=== PATIENT | female | born 1940 | race Caucasian/White ===

== ENCOUNTER 2016-11-04 04:58 | Inpatient (IN) | payer OTHER ==
[~2016-11-04] VITALS: Ht 152.4 cm; Wt 64.0 kg
[~2016-11-04 04:58] MED LIST: AMLO-218 PO; ASPI-664 PO; GABA300C16 PO; GLIP5TAB13 PO; LOSA100T7 PO; MELO-110 PO; OMEP20CA16 PO; RANI150T5 PO
[2016-11-04 05:06] VITALS: Ht 152.4 cm; Wt 64.0 kg
--- NOTE | 2016-11-04 05:53 | RADRPT ---
PROCEDURE: XR Chest. CLINICAL INDICATION: Syncope. TECHNIQUE: Single frontal chest x-ray. COMPARISON: Chest radiograph 06/12/2014. FINDINGS: The cardiac silhouette is mildly enlarged. There are bilateral low lung volumes with vascular crowding and mild bibasilar atelectasis. No pneum othorax, pleural effusion or consolidation is seen. No acute osseous abnormality is noted. Calcific density is noted in the left upper chest/lower neck which may represent vascular calcificat ion. IMPRESSION: 1. Low lung volumes with compressive changes and mild bibasilar atelectasis. 2. Mild cardiomegaly. 3. Calcific density in the left upper chest/lower neck which may represent vascular/carotid calcifi cation. RPTAT: HFN .Damián Prabhakar MD, Date Time Electronically viewed and signed by .Damián Prabhakar MD, on 11/04/2016 05:53 .N/
[2016-11-04 06:38] LABS: EOSINOPHILS # 0.1 10^3/ul (0.0-0.5); HEMOGLOBIN 13.2 g/dl (12.0-16.0); LYMPHOCYTES # 1.4 10^3/ul (0.8-2.9); LYMPHOCYTES % 11.3 % (15.0-51.0); MEAN CORPUSCULAR HEMOGLOBIN 30.9 pg (29.0-33.0); MEAN CORPUSCULAR HGB CONC 33.8 g/dl (32.0-37.0); MEAN CORPUSCULAR VOLUME 91.6 fl (82.0-101.0); MEAN PLATELET VOLUME 8.8 fl (7.4-10.4); MONOCYTE # 0.8 10^3/ul (0.3-0.9); MONOCYTES % 6.9 % (0.0-11.0); NEUTROPHIL # 9.8 10^3/ul (1.6-7.5); NEUTROPHILS % 80.8 % (39.0-77.0); PLATELET COUNT 217 10^3/UL (140-440); RED BLOOD COUNT 4.26 10^6/ul (4.20-5.40); RED CELL DISTRIBUTION WIDTH 12.8 % (11.5-14.5); UNCORRECTED WBC 12.1 10^3/ul (4.8-10.8); WHITE BLOOD COUNT 12.1 10^3/ul (4.8-10.8)
[2016-11-04 06:41] LABS: CONDITION 1
[2016-11-04] MEDS ORDERED: PIOG30TA2 PO (06:46)
[2016-11-04] MEDS ORDERED: AMLO5TAB4 PO (06:46)
[2016-11-04] MEDS ORDERED: ALEN70TA30 PO (06:46)
[2016-11-04 06:48] LABS: CHLORIDE 99 mmol/L (97-110); SODIUM 142 mmol/L (135-144)
[2016-11-04 06:51] LABS: ANION GAP 18 (8-16); BLOOD UREA NITROGEN 13 mg/dl (7-20); CALCIUM 8.7 mg/dl (8.4-10.2); CARBON DIOXIDE 29 mmol/L (21-31); CREATININE 0.65 mg/dl (0.44-1.00); GLUCOSE 162 mg/dl (70-220)
[2016-11-04 07:19] LABS: TROPONIN-I < 0.012 ng/ml (0.00-0.12)
[2016-11-04] MEDS ORDERED: ONDANSETRON 4 MG INJ IV PRN ×2 (07:30→20:30)
[2016-11-04] MEDS ORDERED: ACETAMINOPHEN 325 MG TAB PO PRN ×2 (07:30→20:30)
--- NOTE | 2016-11-04 07:47 | ERA ---
ER Documentation Chief Complaint Date/Time DATE: 11/04/16 TIME: 07:44 Chief Complaint syncopal episode, NAVEEDA RA 38, from home, hx diabetes HPI Patient is a 76-year-old female with hypertension and diabetes who presents with a syncopal event. The daughter says that she "passed out". The grandson started CPR because the patient was unresponsive and was not breathing. The patient was on the floor at that time. The patient now feels numbness to left side of the face. The daughter says she "feels like she is going to ". The patient was brought in by ambulance. This happened just prior to arrival to the hospital. The patient's primary doctor is Dr. Early. ROS All systems reviewed and are negative except as per history of present illness. Medications Home Meds Reported Medications Alendronate Sodium* (Fosamax*) 70 Mg Tablet, 70 MG PO Q7D, #4 TAB 11/04/16 Pioglitazone Hcl* (Actos*) 30 Mg Tablet, 30 MG PO DAILY, #30 TAB 11/04/16 Amlodipine Besylate* (Norvasc*) 5 Mg Tablet, 5 MG PO DAILY, TAB 11/04/16 Ranitidine Hcl* (Ranitidine Hcl*) 150 Mg Tablet, 150 MG PO Q12, TAB 08/14/14 Omeprazole* (Omeprazole*) 20 Mg Capsule.dr, 20 MG PO DAILY, CAP 08/14/14 Losartan Potassium* (Losartan Potassium*) 100 Mg Tablet, 100 MG PO DAILY, TAB 08/14/14 Meloxicam* (Mobic*) 15 Mg Tablet, 15 MG PO DAILY, TAB 08/14/14 Glipizide* (Glipizide*) 5 Mg Tablet, 5 MG PO AM, TAB 08/14/14 Gabapentin* (Gabapentin*) 300 Mg Capsule, 300 MG PO BID, CAP 08/14/14 Discontinued Reported Medications Aspirin* (Aspirin* EC) 81 Mg Tablet.dr, 81 MG PO DAILY, TAB 08/14/14 Discontinued Scripts Amlodipine Besylate* (Norvasc*) 10 Mg Tab, 10 MG PO DAILY, #30 Prov:GARRY EARLY MD 08/17/14 Allergies Allergies: Coded Allergies: No Known Allergy (Unverified , 11/04/16) PMhx/Soc History of Surgery: Yes (HistErectomy) Anesthesia Reaction: No Hx Neurological Disorder: No Hx Respiratory Disorders: No Hx Cardiac Disorders: No Hx Psychiatric Problems: No Hx Miscellaneous Medical Probl: Yes (HTN HYPERLIPEDEMIA) Hx Alcohol Use: No Hx Substance Use: No Hx Tobacco Use: No Smoking Status: Never smoker FmHx Family History: No diabetes Physical Exam Vitals Vital Signs Date Time Temp Pulse Resp B/P Pulse Ox O2 Delivery O2 Flow Rate FiO2 11/04/16 06:35 98.6 88 18 135/62 95 Room Air 11/04/16 05:06 99.6 89 18 179/83 100 Physical Exam Const: No acute distress Head: Atraumatic Eyes: Normal Conjunctiva ENT: Normal External Ears, Nose and Mouth. Neck: Full range of motion..~ No meningismus. Resp: Clear to auscultation bilaterally Cardio: Regular rate and rhythm, no murmurs Abd: Soft, non tender, non distended. Normal bowel sounds Skin: No petechiae or rashes Back: No midline or flank tenderness Ext: No cyanosis, or edema Neur: Awake but anxious Result Diagram: 11/04/16 0544 11/04/16 0544 Results 24 hrs Laboratory Tests Test 11/04/16 05:44 11/04/16 05:51 Anion Gap 18 Basophils # 0.010^3/ul Basophils % 0.0% Blood Urea Nitrogen 13mg/dl Calcium Level 8.7mg/dl Carbon Dioxide Level 29mmol/L Chloride Level 99mmol/L Creatinine 0.65mg/dl Eosinophils # 0.110^3/ul Eosinophils % 1.0% Glucose Level 162mg/dl Hematocrit 39.0% Hemoglobin 13.2g/dl Lymphocytes # 1.410^3/ul Lymphocytes % 11.3% Mean Corpuscular Hemoglobin 30.9pg Mean Corpuscular Hemoglobin Concent 33.8g/dl Mean Corpuscular Volume 91.6fl Mean Platelet Volume 8.8fl Monocytes # 0.810^3/ul Monocytes % 6.9% Neutrophils # 9.810^3/ul Neutrophils % 80.8% Nucleated Red Blood Cells # 0.010^3/ul Nucleated Red Blood Cells % 0.0/100WBC Platelet Count 41113^3/UL Potassium Level 4.0mmol/L Red Blood Count 4.2610^6/ul Red Cell Distribution Width 12.8% Sodium Level 142mmol/L Troponin I < 0.012ng/ml White Blood Count 12.110^3/ul Bedside Glucose 142mg/dL Current Medications Medications (Trade) Dose Ordered Sig/Mary Anne Route PRN Reason Start Time Stop Time Status Last Admin Dose Admin Ondansetron HCl (Zofran Inj) 4 mg ER BRIDGE PRN IV NAUSEA AND/OR VOMITING 11/04/16 07:30 11/05/16 07:29 Acetaminophen (Tylenol Tab) 650 mg ER BRIDGE PRN PO MILD PAIN/FEVER 11/04/16 07:30 11/05/16 07:29 Lorazepam (Ativan) 0.5 mg ONCE ONCE IV 11/04/16 08:00 11/04/16 08:01 11/04/16 07:42 Procedures/MDM EKG #1 read by me: Rate/Rhythm: Regular rate and rhythm at a rate of 89 Intervals: Normal Impression: No evidence of ischemia or arrhythmia EKG #2 read by me: Rate/Rhythm: Regular rate and rhythm at a rate of 88 Intervals: Normal Impression: No evidence of ischemia or arrhythmia Patient refused CT scan of the brain as she was unable to lie flat. Patient is a 76-year-old female with hypertension and diabetes who presents with a syncopal event. The grandson started CPR but it is unclear as to whether the patient actually had lost pulses or not. In any case she is now awake alert and oriented. She has 2 EKGs which were both normal sinus rhythm without signs of ischemia or arrhythmia. Her laboratory studies are normal including a negative troponin. However I do believe that she requires further workup for syncope. She refused a CT scan of the brain. She did get a bedside swallow evaluation performed. However at this point I doubt stroke. I doubt sepsis. I am unclear as to the reason for her syncope however and this is potentially related to a ventricular arrhythmia and therefore I believe admission for telemetry monitoring is appropriate. I spoke with Dr. Cleary who is covering with the patient's primary doctor Dr. Early. The patient will be admitted to a telemetry bed. Departure Diagnosis: Primary Impression: Syncope Qualified Code: R55 - Syncope, unspecified syncope type Condition: DELMER Carrington MD Nov 04, 2016 07:47
[2016-11-04] MEDS ORDERED: LORAZEPAM 2 MG INJ IV ONE (08:00)
[2016-11-04] MEDS ORDERED: ONDANSETRON 4 MG INJ IV STA (12:01)
[2016-11-04] MEDS ORDERED: morphine 4 MG/ML VIAL IV STA ×2 (12:01→19:34)
--- NOTE | 2016-11-04 13:54 | RADRPT ---
PROCEDURE: XR Lumbar Spine 3 Views. CLINICAL INDICATION: Low back pain TECHNIQUE: Lumbar spine study including AP, lateral and coned L5-S1 views was performed. COMPARISON: No prior studies are available for comparison. FINDINGS: Diffuse osteopenia is identified. Straightening of the normal lordosis is seen. No fractures or de structive bony lesions are observed. Moderate intervertebral disk space narrowing is identified at L5-S1. Mild to moderate intervertebral disk space narrowing is identified from T11-L1. Facet arthros is is seen at L5-S1. Soft tissues surrounding the spine appear normal. IMPRESSION: Osteopenia. Straightening of the normal lordosis. This may be positional in nature. Moderate degenerative disk disease at L5-S1. Mild to moderate degenerative disk disease from T11-L1. Facet arthrosis in the lower lumbar spine. If further characterization is needed CT or MRI could be helpful. If there is high clinical suspicion for traumatic injury, further evaluation with CT should be consi dered. RPTAT: AA .Keenan Schreiber MD, Date Time Electronically viewed and signed by .Keenan Schreiber MD, on 11/04/2016 13:53 .P/
[2016-11-04] MEDS ORDERED: NACL 0.9% 3 ML SYG IV SCH (20:30)
--- NOTE | 2016-11-04 20:59 | RADRPT ---
PROCEDURE: US carotid arteries. CLINICAL INDICATION: Dizziness. Syncope. TECHNIQUE: Multiple sonographic images of the carotid arteries and vertebral arteries were obtaine d utilizing duncan scale, duplex, and color-flow imaging. The images were reviewed on a PACS workstati on. COMPARISON: No prior studies are available for comparison. FINDINGS: Evaluation of the right carotid bifurcation region reveals no atherosclerotic disease. Evaluation of the left carotid bifurcation region reveals no atherosclerotic disease. There is antegrade flow within the vertebral arteries bilaterally. RIGHT CAROTID MEASUREMENTS: Common Carotid [id number] (cm/sec) Internal Carotid Artery 89 (cm/sec) External Carotid Artery 122 (cm/sec) Vertebral Artery 54 (cm/sec) Internal Carotid/Common Carotid0.7 LEFT CAROTID MEASUREMENTS: Common Carotid [id number] (cm/sec) Internal Carotid Artery 118 (cm/sec) External Carotid Artery 111 (cm/sec) Vertebral Artery 72 (cm/sec) Internal Carotid/Common Carotid1.0 Validated velocity measurements with angiographic measurements. Velocity criteria are extrapolated f rom diameter data as defined by the Society of Radiologists in Ultrasound Consensus Conference. Radi ology 2003; 229;340-346. IMPRESSION: 1. Normal carotid arteries. 2. Normal antegrade flow in the vertebral arteries bilaterally. RPTAT: QQ SRU Consensus Conference Criteria for the Diagnosis of Carotid Artery Stenosis* Degree of Stenosis, % ICA PSV, cm/sec Plaque Estimate, % ICA/CCA PSV Ratio Normal <125 None <2.0 <50 <125 <50 <2.0 50 69 125-230 >50 2.0-4.0 >70 but less than near occlusion >230 >50 <4.0 Near occlusion High, low, or undetectable Visible Variable Total occlusion Undetectable Visible, no detectable lumen Not applicable *Cartoid artery stenosis: duncan-scale and Doppler US diagnosis. Society of Radiologists in Ultrasound Consensus Conference. Radiology 2003; 229: 340-346 .Law Mills MD, MD Date Time Electronically viewed and signed by .Law Mills MD, on 11/04/2016 20:58 .R/
[2016-11-04] MEDS: FAMOTIDINE 20 MG INJ IV SCH (21:09)
[2016-11-04 22:19] VITALS: TEMP 98.8
[2016-11-04 22:50] VITALS: BP 146/65; PULSE 74; RESP 19
[2016-11-04 23:35] VITALS: BP 146/65; RESP 19
[2016-11-05] VITALS (12 sets, daily range): BP systolic 134–155; BP diastolic 58–70; PULSE 72–83; RESP 18
[2016-11-05 07:39] LABS: BASOPHILS % 0.4 % (0.0-2.0); EOSINOPHILS % 0.5 % (0.0-7.0); HEMATOCRIT 34.2 % (37.0-47.0); HEMOGLOBIN 11.5 g/dl (12.0-16.0); LYMPHOCYTES % 13.3 % (15.0-51.0); MEAN CORPUSCULAR HGB CONC 33.7 g/dl (32.0-37.0); MEAN CORPUSCULAR VOLUME 91.9 fl (82.0-101.0); MEAN PLATELET VOLUME 8.6 fl (7.4-10.4); MONOCYTE # 0.9 10^3/ul (0.3-0.9); MONOCYTES % 11.7 % (0.0-11.0); NEUTROPHIL # 5.8 10^3/ul (1.6-7.5); NEUTROPHILS % 74.1 % (39.0-77.0); PLATELET COUNT 176 10^3/UL (140-440); RED BLOOD COUNT 3.72 10^6/ul (4.20-5.40); RED CELL DISTRIBUTION WIDTH 12.6 % (11.5-14.5); UNCORRECTED WBC 7.8 10^3/ul (4.8-10.8); WHITE BLOOD COUNT 7.8 10^3/ul (4.8-10.8)
[2016-11-05 07:41] LABS: CONDITION 1
[2016-11-05 07:49] LABS: ALBUMIN 3.6 g/dl (3.3-4.9)
[2016-11-05 07:51] LABS: CREATININE 0.52 mg/dl (0.44-1.00)
[2016-11-05 07:52] LABS: ALBUMIN/GLOBULIN RATIO 1.16; BILIRUBIN,INDIRECT 0.5 mg/dl (0-1.1); BILIRUBIN,TOTAL 0.5 mg/dl (0.2-1.3); CALCIUM 8.1 mg/dl (8.4-10.2); TOTAL PROTEIN 6.7 g/dl (6.1-8.1)
[2016-11-05] MEDS ORDERED: HYPOGLYCEMIA PROTOCOL when Glucose is <70 mg/dL or symptomatic <90 mg/dL. XX ONE ×2 (09:00)
[2016-11-05] MEDS ORDERED: GLUCAGON 1 MG INJ IM PRN (09:30)
[2016-11-05] MEDS ORDERED: DEXTROSE 50% 50 ML SYRINGE IV PRN ×2 (09:30)
[2016-11-05] MEDS ORDERED: GLUCOSE GEL 15 GRAM TUBE PO PRN ×2 (09:30)
[2016-11-05] MEDS ORDERED: GLUCOSE GEL 15 GRAM TUBE BUCCAL PRN (09:30)
[2016-11-05] MEDS: FAMOTIDINE 20 MG INJ IV SCH (09:34)
[2016-11-05] MEDS: ENOXAPARIN 30 MG/0.3 ML SYG SC SCH (09:46)
[2016-11-05] MEDS: INSULIN ASPART [NOVOLOG] 3 ML PEN SC SCH ×3 (11:47→21:23)
--- NOTE | 2016-11-05 13:41 | HP ---
Date/Time of Note Date/Time of Note DATE: 11/05/16 TIME: 13:39 Assessment/Plan VTE Prophylaxis VTE Prophylaxis Intervention: LMWH Lines/Catheters IV [facility]ter [facility]from [facility] Saline Lock Urinary Cath still in place: No Reason Cath still needed: skin wounds contaminated by urine Assessment/Plan Chief Complaint/Hosp Course 1) syncope - monitor on telemetry - check 2D echo 2) diabetes - monitor blood sugar Problems: HPI/ROS Admit Date/Time Admit Date/Time Nov 04, 2016 at 07:24 Hx of Present Illness Patient with hypertension, hypercholesterolemia and diabetes mellitus comes in after having a sycopal episode. She has had this in the past, was hospitalized for the same in 2013. Patient has residual pain from where she fell but is otherwise back to normal. PMH/Family/Social Past Medical History Medical History: diabetes, high cholesterol, hypertension Social History Smoking Status: Never smoker Exam/Review of Systems Vital Signs Vitals Vital Signs Date Time Temp Pulse Resp B/P Pulse Ox O2 Delivery O2 Flow Rate FiO2 11/05/16 12:26 83 11/05/16 11:34 98.7 18 146/70 97 11/05/16 04:00 Nasal Cannula 2.0 Intake and Output 11/04/16 11/04/16 11/05/16 15:00 23:00 07:00 Intake Total 200 ml Balance 200 ml Exam Constitutional: alert, well developed Neck: supple Respiratory: clear to auscultation Cardiovascular: regular rate and rhythm Gastrointestinal: non-tender, soft Labs Result Diagram: 11/05/16 0536 11/05/16 0536 Medications Medications Current Medications Ondansetron HCl (Zofran Inj) 4 mg Q6H PRN IV NAUSEA AND/OR VOMITING; Start at 20:30 Acetaminophen (Tylenol Tab) 650 mg Q6H PRN PO PAIN LEVEL 1-3 OR FEVER Last administered on 11/05/16at 05:04; Admin Dose 650 MG; Start 11/04/16 at 20:30 Morphine Sulfate (morphine) 2 mg Q4H PRN IV PAIN LEVEL 7-10; Start 11/04/16 at 20:30 Famotidine (Pepcid Iv) 20 mg DAILY IV Last administered on 11/05/16at 09:34; Admin Dose 20 MG; Start 11/04/16 at 21:00 Enoxaparin Sodium (Lovenox) 30 mg DAILY SC Last administered on 11/05/16at 09: 46; Admin Dose 30 MG; Start 11/05/16 at 09:00 Diagnostic Test (Pha) (Accucheck) 1 ea 02 XX ; Start 11/06/16 at 02:00 Miscellaneous Information 1 ea NOTE XX ; Start 11/05/16 at 09:30 Glucose (Glutose) 15 gm Q15M PRN PO DECREASED GLUCOSE; Start 11/05/16 at 09:30 Glucose (Glutose) 22.5 gm Q15M PRN PO DECREASED GLUCOSE; Start 11/05/16 at 09: 30 Dextrose (D50w Syringe) 25 ml Q15M PRN IV DECREASED GLUCOSE; Start 11/05/16 at 09:30 Dextrose (D50w Syringe) 50 ml Q15M PRN IV DECREASED GLUCOSE; Start 11/05/16 at 09:30 Glucagon (Glucagen) 1 mg Q15M PRN IM DECREASED GLUCOSE; Start 11/05/16 at 09: 30 Glucose (Glutose) 15 gm Q15M PRN BUCCAL DECREASED GLUCOSE; Start 11/05/16 at 09:30 DEBRA DUNNE Nov 05, 2016 13:41
[2016-11-05] MEDS: ACETAMINOPHEN 325 MG TAB PO PRN (14:17)
--- NOTE | 2016-11-05 14:20 | RADRPT ---
Echocardiogram Report Patient Name: NISSA MONTEMAYOR Gender: Female Date: 1940 Study Date: 05-Nov-2016 Cook Ship: [employer] [facility] Location: [address] Ref. Physician: DEBRA DUNNE Quality: Technically Difficult Study Procedures: Transthoracic echocardiogram with complete 2D, M-Mode, and doppler examination. Indications: Syncope. 2D/M Mode Doppler Measurement Value Normal Ranges Measurement Value Normal Ranges LVIDd 2D 3.7 3.5 - 5.6 cm AV Peak Rico 1.6 m/sec LVIDs 2D 2.3 2.1 - 4.1 cm AV Peak PG 10.7 mmHg LVPWd 2D 0.8 0.6 - 1.1 cm AI Peak PG 59.5 mmHg IVSd 2D 0.8 0.6 - 1.1 cm AI Peak Rico 3.9 m/sec AoR Diam 2D 2.6 2.0 - 3.7 cm AI PHT 394.0 msec EDV 2D 57.2 cm3 LVOT Peak Rico 1.0 m/sec ESV 2D 11.8 cm3 LVOT Peak PG 4.0 mmHg LA Dimen 2D 3.0 2.3 - 4.0 cm TR Peak Rico 2.9 m/sec TR Peak PG 33.3 mmHg RVSP 36.0 mmHg Findings Left Ventricle: Normal left ventricular systolic function. Normal left ventricular cavity size. Normal left ventricular wall thickness. Ejection fraction is visually estimated at 65 %. Tissue Doppler/Mitral Doppler indices are consistent with impaired relaxation (Stage I diastolic dysfunction). Right Ventricle: Normal right ventricular size. Normal right ventricular systolic function. Left Atrium: The left atrium is normal in size. Right Atrium: The right atrium is normal in size. Mitral Valve: Mitral valve leaflets appear mildly thickened. Mild mitral annular calcification. Mild mitral valve regurgitation. Aortic Valve: No hemodynamically significant aortic stenosis by doppler. Aortic cusps appear mildly calcified. Mild aortic valve regurgitation. Tricuspid Valve: Normal appearance of the tricuspid valve. Estimated peak PA systolic pressure 36 mmHg. There is mild tricuspid regurgitation. Pulmonic Valve: Pulmonic valve not well visualized. Pericardium: Normal pericardium with no significant pericardial effusion. Aorta: Normal aortic root. IVC: Normal size and normal respiratory collapse consistent with normal right atrial pressure. Pulmonary Artery: Normal pulmonary artery size. Conclusions 1.Normal left ventricular systolic function. Normal left ventricular cavity size. Normal left ventricular wall thickness. Ejection fraction is visually estimated at 65 %. Tissue Doppler/Mitral Doppler indices are consistent with impaired relaxation (Stage I diastolic dysfunction). 2.Normal right ventricular size. Normal right ventricular systolic function. 3.The left atrium is normal in size. 4.The right atrium is normal in size. 5.Mild mitral valve regurgitation. 6.No hemodynamically significant aortic stenosis by doppler. Mild aortic valve regurgitation. 7.Estimated peak PA systolic pressure 36 mmHg. There is mild tricuspid regurgitation. 8.Normal pericardium with no significant pericardial effusion. Electronically Signed By: Andrae Ferrera 05-Nov-2016 14:20:13 -0800 Patient Name: NISSA MONTEMAYOR Study Date: 05-Nov-2016 [id number]
[2016-11-05] MEDS: morphine 2 MG INJ IV PRN ×2 (16:23→21:16)
[2016-11-05] MEDS: AMLODIPINE 5 MG TAB PO SCH (21:27)
[2016-11-06] VITALS (12 sets, daily range): BP systolic 137–160; BP diastolic 58–72; PULSE 75–90; RESP 16–20
[2016-11-06] MEDS: ALBUTEROL 0.5% (NEB) 2.5 MG/0.5 ML AMP HHN PRN ×3 (00:24→13:33)
[2016-11-06] MEDS: morphine 2 MG INJ IV PRN (01:34)
[2016-11-06] MEDS: ACCUCHECK XX SCH (02:33)
[2016-11-06] MEDS: FAMOTIDINE 20 MG INJ IV SCH (09:00)
[2016-11-06] MEDS: LOSARTAN 50 MG TAB PO SCH (09:00)
[2016-11-06] MEDS: MELOXICAM 15 MG TAB PO SCH (09:00)
[2016-11-06] MEDS: INSULIN ASPART [NOVOLOG] 3 ML PEN SC SCH ×4 (09:02→21:00)
[2016-11-06] MEDS: ENOXAPARIN 30 MG/0.3 ML SYG SC SCH (09:04)
--- NOTE | 2016-11-06 14:32 | DS ---
Date/Time of Note Date/Time of Note DATE: 11/06/16 TIME: 14:31 Discharge Summary Admission/Discharge Info Admit Date/Time Nov 04, 2016 at 07:24 Discharge Date/Time 11/06/16 Final Diagnosis 1) syncope Hx of Present Illness Patient with hypertension, hypercholesterolemia and diabetes mellitus comes in after having a sycopal episode. She has had this in the past, was hospitalized for the same in 2013. Patient has residual pain from where she fell but is otherwise back to normal. Hospital Course Patient comes in with syncope. She was monitored on telemetry, had carotid studies done which was negative. Patient did have chest pain but no evidence of acute coronary syndrome. Patient was deemed to be stable and so was sent home. 1) syncope - monitor on telemetry - check 2D echo 2) diabetes - monitor blood sugar Home Meds Reported Medications Alendronate Sodium* (Fosamax*) 70 Mg Tablet, 70 MG PO Q7D, #4 TAB 11/04/16 Pioglitazone Hcl* (Actos*) 30 Mg Tablet, 30 MG PO DAILY, #30 TAB 11/04/16 Amlodipine Besylate* (Norvasc*) 5 Mg Tablet, 5 MG PO DAILY, TAB 11/04/16 Ranitidine Hcl* (Ranitidine Hcl*) 150 Mg Tablet, 150 MG PO Q12, TAB 08/14/14 Omeprazole* (Omeprazole*) 20 Mg Capsule.dr, 20 MG PO DAILY, CAP 08/14/14 Losartan Potassium* (Losartan Potassium*) 100 Mg Tablet, 100 MG PO DAILY, TAB 08/14/14 Meloxicam* (Mobic*) 15 Mg Tablet, 15 MG PO DAILY, TAB 08/14/14 Glipizide* (Glipizide*) 5 Mg Tablet, 5 MG PO AM, TAB 08/14/14 Gabapentin* (Gabapentin*) 300 Mg Capsule, 300 MG PO BID, CAP 08/14/14 Discontinued Reported Medications Aspirin* (Aspirin* EC) 81 Mg Tablet.dr, 81 MG PO DAILY, TAB 08/14/14 Discontinued Scripts Amlodipine Besylate* (Norvasc*) 10 Mg Tab, 10 MG PO DAILY, #30 Prov:GARRY FULLER MD 08/17/14 Pending Labs Laboratory Tests Test 11/05/16 16:40 11/05/16 21:14 11/06/16 02:26 11/06/16 05:55 Bedside Glucose 124mg/dL (70-220) 256mg/dL (70-220) 139mg/dL (70-220) Troponin I < 0.012ng/ml (0.00-0.12) Test 11/06/16 08:34 11/06/16 11:54 11/06/16 13:10 Bedside Glucose 176mg/dL (70-220) 184mg/dL (70-220) Troponin I < 0.012ng/ml (0.00-0.12) DEBRA DUNNE Nov 06, 2016 14:32
[2016-11-06] MEDS: ALBUTEROL 0.5% (NEB) 2.5 MG/0.5 ML AMP HHN SCH (20:24)
[2016-11-06] MEDS: AMLODIPINE 5 MG TAB PO SCH (21:44)
[2016-11-07] VITALS (12 sets, daily range): BP systolic 132–163; BP diastolic 63–80; PULSE 73–81; RESP 18–20
[2016-11-07] MEDS: ALBUTEROL 0.5% (NEB) 2.5 MG/0.5 ML AMP HHN SCH ×7 (00:11→20:29)
[2016-11-07] MEDS: GUAIFENESIN 20 MG/ML 5ML CUP PO PRN ×4 (00:23→18:43)
[2016-11-07] MEDS: ACCUCHECK XX SCH (02:00)
[2016-11-07] MEDS: INSULIN ASPART [NOVOLOG] 3 ML PEN SC SCH ×4 (07:49→21:00)
[2016-11-07] MEDS: LOSARTAN 50 MG TAB PO SCH (08:30)
[2016-11-07] MEDS: MELOXICAM 15 MG TAB PO SCH (08:31)
[2016-11-07] MEDS: ENOXAPARIN 30 MG/0.3 ML SYG SC SCH (08:31)
[2016-11-07] MEDS: FAMOTIDINE 20 MG INJ IV SCH (08:31)
--- NOTE | 2016-11-07 09:57 | PN ---
Date/Time of Note Date/Time of Note DATE: 11/07/16 TIME: 09:55 Assessment/Plan VTE Prophylaxis VTE Prophylaxis Intervention: LMWH Lines/Catheters [facility] Saline [facility] Urinary Cath still in place: No Assessment/Plan Chief Complaint/Hosp Course Patient comes in with syncope. She was monitored on telemetry, had carotid studies done which was negative. Patient did have chest pain but no evidence of acute coronary syndrome. Patient was deemed to be stable and so was sent home. 1) syncope - is stable 2) diabetes - monitor blood sugar 3) shortness of breath - unclear etiology - will try to wean need for oxygen Problems: Subjective 24 Hr Interval Summary Free Text/Dictation Attempted to discharge the patient yesterday but patient became short of breath with hypoxia with activity. Patient is doing better today but still on oxygen. Exam/Review of Systems Vital Signs Vitals Vital Signs Date Time Temp Pulse Resp B/P Pulse Ox O2 Delivery O2 Flow Rate FiO2 11/07/16 09:11 97 4.0 11/07/16 09:11 87 20 Nasal Cannula 11/07/16 08:06 98.1 163/75 Intake and Output 11/06/16 11/06/16 11/07/16 15:00 23:00 07:00 Intake Total 900 ml 650 ml Output Total 800 ml 750 ml Balance 100 ml -100 ml Exam Constitutional: alert, well developed Head: atraumatic, normocephalic Neck: supple Respiratory: diminished breath sounds Cardiovascular: regular rate and rhythm Gastrointestinal: non-tender, soft Extremities: normal pulses Results Result Diagram: 11/05/16 0536 11/05/16 0536 Results 24 hrs Laboratory Tests Test 11/06/16 11:54 11/06/16 13:10 11/06/16 17:29 11/06/16 21:32 Bedside Glucose 184 123 137 Troponin I < 0.012 Test 11/07/16 07:48 Bedside Glucose 137 Medications Medications Current Medications Ondansetron HCl (Zofran Inj) 4 mg Q6H PRN IV NAUSEA AND/OR VOMITING; Start at 20:30 Morphine Sulfate (morphine) 2 mg Q4H PRN IV PAIN LEVEL 7-10 Last administered on 11/06/16at 01:34; Admin Dose 2 MG; Start 11/04/16 at 20:30 Famotidine (Pepcid Iv) 20 mg DAILY IV Last administered on 11/07/16at 08:31; Admin Dose 20 MG; Start 11/04/16 at 21:00 Enoxaparin Sodium (Lovenox) 30 mg DAILY SC Last administered on 11/07/16at 08: 31; Admin Dose 30 MG; Start 11/05/16 at 09:00 Diagnostic Test (Pha) (Accucheck) 1 ea 02 XX Last administered on 11/06/16at 02 :33; Admin Dose 1 EA; Start 11/06/16 at 02:00 Miscellaneous Information 1 ea NOTE XX ; Start 11/05/16 at 09:30 Glucose (Glutose) 15 gm Q15M PRN PO DECREASED GLUCOSE; Start 11/05/16 at 09:30 Glucose (Glutose) 22.5 gm Q15M PRN PO DECREASED GLUCOSE; Start 11/05/16 at 09: 30 Dextrose (D50w Syringe) 25 ml Q15M PRN IV DECREASED GLUCOSE; Start 11/05/16 at 09:30 Dextrose (D50w Syringe) 50 ml Q15M PRN IV DECREASED GLUCOSE; Start 11/05/16 at 09:30 Glucagon (Glucagen) 1 mg Q15M PRN IM DECREASED GLUCOSE; Start 11/05/16 at 09: 30 Glucose (Glutose) 15 gm Q15M PRN BUCCAL DECREASED GLUCOSE; Start 11/05/16 at 09:30 Acetaminophen (Tylenol Tab) 650 mg Q4H PRN PO PAIN AND OR ELEVATED TEMP Last administered on 11/05/16at 14:17; Admin Dose 650 MG; Start 11/05/16 at 14:30 Amlodipine Besylate (Norvasc) 5 mg QHS PO Last administered on 11/06/16at 21:44 ; Admin Dose 5 MG; Start 11/05/16 at 21:30 Losartan Potassium (Cozaar) 100 mg DAILY PO Last administered on 11/07/16at 08: 30; Admin Dose 100 MG; Start 11/06/16 at 09:00 Meloxicam (Mobic) 15 mg DAILY PO Last administered on 11/07/16at 08:31; Admin Dose 15 MG; Start 11/06/16 at 09:00 Guaifenesin (Robitussin Liquid Cup) 100 mg Q6H PRN PO COUGH Last administered on 11/07/16at 05:49; Admin Dose 100 MG; Start 11/07/16 at 00:15 DEBRA DUNNE Nov 07, 2016 09:57
[2016-11-07] MEDS ORDERED: MAGNESIUM CITRATE 300 ML BTL PO ONE (20:30)
[2016-11-07] MEDS: AMLODIPINE 5 MG TAB PO SCH (21:15)
[2016-11-07] MEDS: ZOLPIDEM 5 MG TAB PO PRN (21:15)
[2016-11-08] VITALS (11 sets, daily range): BP systolic 123–160; BP diastolic 59–77; PULSE 73–87; RESP 16–20
[2016-11-08] MEDS: ALBUTEROL 0.5% (NEB) 2.5 MG/0.5 ML AMP HHN SCH ×6 (01:14→20:23)
[2016-11-08] MEDS: ACCUCHECK XX SCH (02:00)
[2016-11-08] MEDS: GUAIFENESIN 20 MG/ML 5ML CUP PO PRN ×3 (02:06→19:33)
[2016-11-08] MEDS: INSULIN ASPART [NOVOLOG] 3 ML PEN SC SCH ×4 (07:45→21:00)
[2016-11-08] MEDS: LOSARTAN 50 MG TAB PO SCH (08:22)
[2016-11-08] MEDS: MELOXICAM 15 MG TAB PO SCH (08:22)
[2016-11-08] MEDS: ENOXAPARIN 30 MG/0.3 ML SYG SC SCH (08:26)
[2016-11-08] MEDS: FAMOTIDINE 20 MG INJ IV SCH (08:27)
--- NOTE | 2016-11-08 12:21 | PN ---
Date/Time of Note Date/Time of Note DATE: 11/08/16 TIME: 12:18 Assessment/Plan VTE Prophylaxis VTE Prophylaxis Intervention: LMWH Lines/Catheters [facility] Saline Lock Assessment/Plan Chief Complaint/Hosp Course Patient comes in with syncope. She was monitored on telemetry, had carotid studies done which was negative. Patient did have chest pain but no evidence of acute coronary syndrome. Patient was deemed to be stable and so was sent home. 1) syncope - is stable 2) diabetes - monitor blood sugar 3) hypoxia, requiring 4L oxygen - consider pulmonary consult 4) right rib pain - check xray to rule out fracture Problems: Subjective 24 Hr Interval Summary Free Text/Dictation Patient complain of pain in right rib and is still very hypoxic. Exam/Review of Systems Vital Signs Vitals Vital Signs Date Time Temp Pulse Resp B/P Pulse Ox O2 Delivery O2 Flow Rate FiO2 11/08/16 11:25 98.2 78 20 140/61 96 11/08/16 09:56 Nasal Cannula 4.0 Intake and Output 11/07/16 11/07/16 11/08/16 15:00 23:00 07:00 Intake Total 640 ml 550 ml Balance 640 ml 550 ml Exam Constitutional: well developed Head: atraumatic, normocephalic Respiratory: diminished breath sounds Cardiovascular: regular rate and rhythm Gastrointestinal: non-tender, soft Extremities: normal pulses Results Result Diagram: 11/05/16 0536 11/05/16 0536 Results 24 hrs Laboratory Tests Test 11/07/16 12:23 11/07/16 17:14 11/07/16 21:12 11/08/16 07:30 Bedside Glucose 132 134 162 144 Test 11/08/16 11:28 Bedside Glucose 197 Medications Medications Current Medications Ondansetron HCl (Zofran Inj) 4 mg Q6H PRN IV NAUSEA AND/OR VOMITING; Start at 20:30 Morphine Sulfate (morphine) 2 mg Q4H PRN IV PAIN LEVEL 7-10 Last administered on 11/06/16at 01:34; Admin Dose 2 MG; Start 11/04/16 at 20:30 Famotidine (Pepcid Iv) 20 mg DAILY IV Last administered on 11/08/16t 08:27; Admin Dose 20 MG; Start 11/04/16 at 21:00 Enoxaparin Sodium (Lovenox) 30 mg DAILY SC Last administered on 11/08/16 08:26 ; Admin Dose 30 MG; Start 11/05/16 at 09:00 Diagnostic Test (Pha) (Accucheck) 1 ea 02 XX Last administered on 11/06/16at 02 :33; Admin Dose 1 EA; Start 11/06/16 at 02:00 Miscellaneous Information 1 ea NOTE XX ; Start 11/05/16 at 09:30 Glucose (Glutose) 15 gm Q15M PRN PO DECREASED GLUCOSE; Start 11/05/16 at 09:30 Glucose (Glutose) 22.5 gm Q15M PRN PO DECREASED GLUCOSE; Start 11/05/16 at 09: 30 Dextrose (D50w Syringe) 25 ml Q15M PRN IV DECREASED GLUCOSE; Start 11/05/16 at 09:30 Dextrose (D50w Syringe) 50 ml Q15M PRN IV DECREASED GLUCOSE; Start 11/05/16 at 09:30 Glucagon (Glucagen) 1 mg Q15M PRN IM DECREASED GLUCOSE; Start 11/05/16 at 09: 30 Glucose (Glutose) 15 gm Q15M PRN BUCCAL DECREASED GLUCOSE; Start 11/05/16 at 09:30 Acetaminophen (Tylenol Tab) 650 mg Q4H PRN PO PAIN AND OR ELEVATED TEMP Last administered on 11/05/16at 14:17; Admin Dose 650 MG; Start 11/05/16 at 14:30 Amlodipine Besylate (Norvasc) 5 mg QHS PO Last administered on 11/07/16at 21:15 ; Admin Dose 5 MG; Start 11/05/16 at 21:30 Losartan Potassium (Cozaar) 100 mg DAILY PO Last administered on 11/08/16 08:22 ; Admin Dose 100 MG; Start 11/06/16 at 09:00 Meloxicam (Mobic) 15 mg DAILY PO Last administered on 11/08/16 08:22; Admin Dose 15 MG; Start 11/06/16 at 09:00 Guaifenesin (Robitussin Liquid Cup) 100 mg Q6H PRN PO COUGH Last administered on 11/08/16 02:06; Admin Dose 100 MG; Start 11/07/16 at 00:15 Zolpidem Tartrate (Ambien) 5 mg HS PRN PO INSOMNIA Last administered on at 21:15; Admin Dose 5 MG; Start 11/07/16 at 19:30 DEBRA DUNNE Nov 08, 2016 12:20
[2016-11-08] MEDS: ACETAMINOPHEN 325 MG TAB PO PRN (19:33)
[2016-11-08] MEDS: AMLODIPINE 5 MG TAB PO SCH (21:34)
[2016-11-08] MEDS: ZOLPIDEM 5 MG TAB PO PRN (22:45)
[2016-11-09] VITALS (12 sets, daily range): BP systolic 116–154; BP diastolic 56–75; PULSE 66–89; RESP 16–20
[2016-11-09] MEDS: ALBUTEROL 0.5% (NEB) 2.5 MG/0.5 ML AMP HHN SCH ×8 (00:36→20:59)
[2016-11-09] MEDS: ACCUCHECK XX SCH (02:00)
[2016-11-09] MEDS: INSULIN ASPART [NOVOLOG] 3 ML PEN SC SCH ×4 (07:55→20:28)
--- NOTE | 2016-11-09 08:02 | RADRPT ---
PROCEDURE: XR Chest. CLINICAL INDICATION: Shortness of breath. TECHNIQUE: Single frontal view. COMPARISON: 11/04/2016. FINDINGS: There is mild atelectasis at the lung bases, worse than seen previously. The lungs are otherwise cl ear. The heart size is normal. There is no pleural effusion. There is no pneumothorax. IMPRESSION: 1. Worse appearance of the lung bases. 2. No other change from 11/04/2016. RPTAT: QQ .Law Mills MD, MD Date Time Electronically viewed and signed by .Law Mills MD, MD on 11/09/2016 08:02 .R/
[2016-11-09] MEDS: LOSARTAN 50 MG TAB PO SCH (08:57)
[2016-11-09] MEDS: MELOXICAM 15 MG TAB PO SCH (08:57)
[2016-11-09] MEDS: FAMOTIDINE 20 MG INJ IV SCH (08:58)
[2016-11-09] MEDS: ENOXAPARIN 30 MG/0.3 ML SYG SC SCH (09:03)
[2016-11-09] MEDS: GUAIFENESIN 20 MG/ML 5ML CUP PO PRN ×2 (10:16→19:46)
--- NOTE | 2016-11-09 13:24 | PN ---
Date/Time of Note Date/Time of Note DATE: 11/09/16 TIME: 13:22 Assessment/Plan VTE Prophylaxis VTE Prophylaxis Intervention: LMWH Lines/Catheters IV [facility]ter Type (from [facility]): Saline Lock Urinary Cath still in place: No Assessment/Plan Chief Complaint/Hosp Course Patient comes in with syncope. She was monitored on telemetry, had carotid studies done which was negative. Patient did have chest pain but no evidence of acute coronary syndrome. Patient was deemed to be stable and so was sent home. 1) syncope - is stable 2) diabetes - monitor blood sugar 3) hypoxia, requiring 4L oxygen - seems to be better - continue to monitor 4) right rib pain - xray is negative Problems: Subjective 24 Hr Interval Summary Free Text/Dictation Patient is doing better Exam/Review of Systems Vital Signs Vitals Vital Signs Date Time Temp Pulse Resp B/P Pulse Ox O2 Delivery O2 Flow Rate FiO2 11/09/16 13:17 72 20 96 Nasal Cannula 3.0 11/09/16 11:44 98.5 116/59 Intake and Output 11/08/16 11/08/16 11/09/16 15:00 23:00 07:00 Intake Total 960 ml 450 ml Balance 960 ml 450 ml Exam Constitutional: frail, well developed Neck: supple Respiratory: clear to auscultation Cardiovascular: regular rate and rhythm Gastrointestinal: non-tender, soft Extremities: normal pulses Results Result Diagram: 11/05/16 0536 11/05/16 0536 Results 24 hrs Laboratory Tests Test 11/08/16 17:30 11/08/16 21:33 11/09/16 07:49 11/09/16 11:20 Bedside Glucose 109 143 124 262 H Medications Medications Current Medications Ondansetron HCl (Zofran Inj) 4 mg Q6H PRN IV NAUSEA AND/OR VOMITING; Start at 20:30 Morphine Sulfate (morphine) 2 mg Q4H PRN IV PAIN LEVEL 7-10 Last administered on 11/06/16at 01:34; Admin Dose 2 MG; Start 11/04/16 at 20:30 Famotidine (Pepcid Iv) 20 mg DAILY IV Last administered on 11/09/16 08:58; Admin Dose 20 MG; Start 11/04/16 at 21:00 Enoxaparin Sodium (Lovenox) 30 mg DAILY SC Last administered on 11/09/16 09:03 ; Admin Dose 30 MG; Start 11/05/16 at 09:00 Diagnostic Test (Pha) (Accucheck) 1 ea 02 XX Last administered on 11/06/16at 02 :33; Admin Dose 1 EA; Start 11/06/16 at 02:00 Miscellaneous Information 1 ea NOTE XX ; Start 11/05/16 at 09:30 Glucose (Glutose) 15 gm Q15M PRN PO DECREASED GLUCOSE; Start 11/05/16 at 09:30 Glucose (Glutose) 22.5 gm Q15M PRN PO DECREASED GLUCOSE; Start 11/05/16 at 09: 30 Dextrose (D50w Syringe) 25 ml Q15M PRN IV DECREASED GLUCOSE; Start 11/05/16 at 09:30 Dextrose (D50w Syringe) 50 ml Q15M PRN IV DECREASED GLUCOSE; Start 11/05/16 at 09:30 Glucagon (Glucagen) 1 mg Q15M PRN IM DECREASED GLUCOSE; Start 11/05/16 at 09: 30 Glucose (Glutose) 15 gm Q15M PRN BUCCAL DECREASED GLUCOSE; Start 11/05/16 at 09:30 Acetaminophen (Tylenol Tab) 650 mg Q4H PRN PO PAIN AND OR ELEVATED TEMP Last administered on 11/08/16 19:33; Admin Dose 650 MG; Start 11/05/16 at 14:30 Amlodipine Besylate (Norvasc) 5 mg QHS PO Last administered on 11/08/16 21:34; Admin Dose 5 MG; Start 11/05/16 at 21:30 Losartan Potassium (Cozaar) 100 mg DAILY PO Last administered on 11/09/16 08:57 ; Admin Dose 100 MG; Start 11/06/16 at 09:00 Meloxicam (Mobic) 15 mg DAILY PO Last administered on 11/09/16 08:57; Admin Dose 15 MG; Start 11/06/16 at 09:00 Guaifenesin (Robitussin Liquid Cup) 100 mg Q6H PRN PO COUGH Last administered on 11/09/16 10:16; Admin Dose 100 MG; Start 11/07/16 at 00:15 Zolpidem Tartrate (Ambien) 5 mg HS PRN PO INSOMNIA Last administered on 22:45; Admin Dose 5 MG; Start 11/07/16 at 19:30 DEBRA DUNNE Nov 09, 2016 13:24
[2016-11-09] MEDS ORDERED: FUROSEMIDE 40 MG INJ IV ONE (13:30)
[2016-11-09] MEDS: LEVOFLOXACIN 500MG/D5W (PMX) 100 ML IVPB SCH (14:18)
--- NOTE | 2016-11-09 15:13 | CONS ---
DATE OF ADMISSION: 11/04/2016 DATE OF CONSULTATION: 11/09/2016 REASON FOR CONSULTATION: Shortness of breath. Thank you, Dr. Cleary, for this consultation. HISTORY OF PRESENT ILLNESS: This is a 76-year-old lady with history of hypertension, hyperlipidemia , came in having had what was described as a syncopal episode, fell to the floor, was unresponsive a nd CPR was commenced by patient's grandson patient did not, however, lose a pulse and was brought to emergency room for further evaluation. PAST MEDICAL HISTORY: As above includes diabetes, hypertension, hyperlipidemia. MEDICATIONS: Per chart. ALLERGIES: NO KNOWN ALLERGIES. SOCIAL HISTORY: Nonsmoker, no alcohol, no history of drug use. FAMILY HISTORY: Noncontributory. SYSTEMS REVIEW: A 12-point review of systems was negative other than that mentioned above. PHYSICAL EXAMINATION: GENERAL: Well-nourished, well-developed lady, comfortable at rest, talking in full and complete sen tences, sitting up in chair, no evidence of respiratory distress. VITAL SIGNS: Temperature 98, pulse 72, blood pressure 116/59, O2 saturation 96% on 3 liters. NECK: Supple. No JVD or lymphadenopathy. CARDIAC: S1, S2, no added sounds or murmurs. CHEST: Diminished air entry bilaterally. No rales or wheezes. ABDOMEN: Soft, nontender. No guarding or rebound. EXTREMITIES: No cyanosis, clubbing, edema. NEUROLOGIC: Grossly intact. No focal deficits. DIAGNOSTIC STUDIES: Chest rib series shows patchy bilateral infiltrates and atelectasis but no evid ence of rib fractures and initial CT. Chest x-ray shows mild atelectasis. IMPRESSION AND PLAN: Likely acute bronchitis versus aspiration pneumonia during syncopal event with now subsequent dyspne a. The patient will require: 1. Incentive spirometry. 2. Encourage out of bed. 3. Bronchodilators. 4. Trial of Lasix x1. Dictated By: DEE DEE BLAKE/ELIF Conf#: [id number] DID#: [id number]
[2016-11-09] MEDS: ZOLPIDEM 5 MG TAB PO PRN (20:31)
[2016-11-09] MEDS: AMLODIPINE 5 MG TAB PO SCH (20:32)
[2016-11-10] VITALS (9 sets, daily range): BP systolic 125–152; BP diastolic 65–69; PULSE 64–82; RESP 18–20
[2016-11-10] MEDS: ALBUTEROL 0.5% (NEB) 2.5 MG/0.5 ML AMP HHN SCH ×6 (00:49→20:03)
[2016-11-10] MEDS: GUAIFENESIN 20 MG/ML 5ML CUP PO PRN (01:06)
[2016-11-10] MEDS: ACCUCHECK XX SCH (02:00)
[2016-11-10] MEDS: INSULIN ASPART [NOVOLOG] 3 ML PEN SC SCH ×4 (07:55→20:34)
[2016-11-10] MEDS: FAMOTIDINE 20 MG INJ IV SCH (08:54)
[2016-11-10] MEDS: MELOXICAM 15 MG TAB PO SCH (08:54)
[2016-11-10] MEDS: LOSARTAN 50 MG TAB PO SCH (08:55)
[2016-11-10] MEDS: ENOXAPARIN 30 MG/0.3 ML SYG SC SCH (08:58)
--- NOTE | 2016-11-10 12:28 | PN ---
Date/Time of Note Date/Time of Note DATE: 11/10/16 TIME: 12:27 Assessment/Plan VTE Prophylaxis VTE Prophylaxis Intervention: LMWH Lines/Catheters IV Catheter Type (from [facility]): Saline Lock Urinary Cath still in place: No Assessment/Plan Chief Complaint/Hosp Course Patient comes in with syncope. She was monitored on telemetry, had carotid studies done which was negative. Patient did have chest pain but no evidence of acute coronary syndrome. Patient was deemed to be stable and so was sent home. 1) syncope - is stable 2) diabetes - monitor blood sugar 3) hypoxia, requiring 4L oxygen - seems to be better - continue to monitor 4) right rib pain - xray is negative Problems: Subjective 24 Hr Interval Summary Free Text/Dictation Patient is breathing better Exam/Review of Systems Vital Signs Vitals Vital Signs Date Time Temp Pulse Resp B/P Pulse Ox O2 Delivery O2 Flow Rate FiO2 11/10/16 12:19 77 11/10/16 11:54 98.0 20 139/65 96 11/10/16 10:16 3.0 11/10/16 10:15 Nasal Cannula 11/09/16 17:05 21 Intake and Output 11/09/16 11/09/16 11/10/16 15:00 23:00 07:00 Intake Total 1000 ml 220 ml Balance 1000 ml 220 ml Exam Constitutional: frail, well developed Head: atraumatic, normocephalic Neck: supple Respiratory: diminished breath sounds Cardiovascular: regular rate and rhythm Gastrointestinal: non-tender, soft Results Results 24 hrs Laboratory Tests Test 11/09/16 17:26 11/09/16 20:26 11/10/16 07:22 11/10/16 11:24 Bedside Glucose 95 191 139 196 Medications Medications Current Medications Ondansetron HCl (Zofran Inj) 4 mg Q6H PRN IV NAUSEA AND/OR VOMITING; Start at 20:30 Morphine Sulfate (morphine) 2 mg Q4H PRN IV PAIN LEVEL 7-10 Last administered on 11/06/16at 01:34; Admin Dose 2 MG; Start 11/04/16 at 20:30 Famotidine (Pepcid Iv) 20 mg DAILY IV Last administered on 11/10/16t 08:54; Admin Dose 20 MG; Start 11/04/16 at 21:00 Enoxaparin Sodium (Lovenox) 30 mg DAILY SC Last administered on 11/10/16 08:58 ; Admin Dose 30 MG; Start 11/05/16 at 09:00 Diagnostic Test (Pha) (Accucheck) 1 ea 02 XX Last administered on 11/06/16at 02 :33; Admin Dose 1 EA; Start 11/06/16 at 02:00 Miscellaneous Information 1 ea NOTE XX ; Start 11/05/16 at 09:30 Glucose (Glutose) 15 gm Q15M PRN PO DECREASED GLUCOSE; Start 11/05/16 at 09:30 Glucose (Glutose) 22.5 gm Q15M PRN PO DECREASED GLUCOSE; Start 11/05/16 at 09: 30 Dextrose (D50w Syringe) 25 ml Q15M PRN IV DECREASED GLUCOSE; Start 11/05/16 at 09:30 Dextrose (D50w Syringe) 50 ml Q15M PRN IV DECREASED GLUCOSE; Start 11/05/16 at 09:30 Glucagon (Glucagen) 1 mg Q15M PRN IM DECREASED GLUCOSE; Start 11/05/16 at 09: 30 Glucose (Glutose) 15 gm Q15M PRN BUCCAL DECREASED GLUCOSE; Start 11/05/16 at 09:30 Acetaminophen (Tylenol Tab) 650 mg Q4H PRN PO PAIN AND OR ELEVATED TEMP Last administered on 11/08/16 19:33; Admin Dose 650 MG; Start 11/05/16 at 14:30 Amlodipine Besylate (Norvasc) 5 mg QHS PO Last administered on 11/09/16 20:32; Admin Dose 5 MG; Start 11/05/16 at 21:30 Losartan Potassium (Cozaar) 100 mg DAILY PO Last administered on 11/10/16 08:55 ; Admin Dose 100 MG; Start 11/06/16 at 09:00 Meloxicam (Mobic) 15 mg DAILY PO Last administered on 11/10/16 08:54; Admin Dose 15 MG; Start 11/06/16 at 09:00 Guaifenesin (Robitussin Liquid Cup) 100 mg Q6H PRN PO COUGH Last administered on 11/10/16 01:06; Admin Dose 100 MG; Start 11/07/16 at 00:15 Zolpidem Tartrate 5 mg 5 mg HS PRN PO INSOMNIA Last administered on 1/2/17at 20 :31; Admin Dose 5 MG; Start 11/07/16 at 19:30 Levofloxacin/ Dextrose (Levaquin 500mg/ D5W 100 ml (Pmx)) 100 ml @ 100 mls/hr Q24H IVPB Last administered on 11/09/16t 14:18; Admin Dose 100 MLS/HR; Start 11/09/16 at 13:30 DEBRA DUNNE Nov 10, 2016 12:28
[2016-11-10] MEDS: LEVOFLOXACIN 500MG/D5W (PMX) 100 ML IVPB SCH (13:28)
--- NOTE | 2016-11-10 15:44 | CONS ---
Date/Time of Note Date/Time of Note DATE: 11/10/16 TIME: 15:41 Consult Date/Type/Reason Admit Date/Time Nov 04, 2016 at 07:24 Initial Consult Date Type of Consultation: Pulm Subjective Comfortable, mild SOB Objective Vital Signs Date Time Temp Pulse Resp B/P Pulse Ox O2 Delivery O2 Flow Rate FiO2 11/10/16 15:23 Nasal Cannula 2.0 11/10/16 15:09 98.1 82 18 142/68 98 11/09/16 17:05 21 Intake and Output 11/09/16 11/09/16 11/10/16 15:00 23:00 07:00 Intake Total 1000 ml 220 ml Balance 1000 ml 220 ml PHYSICAL EXAMINATION: GENERAL: Well-nourished, well-developed lady, comfortable at rest, VITAL SIGNS: NECK: Supple. No JVD or lymphadenopathy. CARDIAC: S1, S2, no added sounds or murmurs. CHEST: Diminished air entry bilaterally. No rales or wheezes. ABDOMEN: Soft, nontender. No guarding or rebound. EXTREMITIES: No cyanosis, clubbing, edema. NEUROLOGIC: Grossly intact. No focal deficits. Results/Medications Results 24 hrs Laboratory Tests Test 11/09/16 17:26 11/09/16 20:26 11/10/16 07:22 11/10/16 11:24 Bedside Glucose 95 191 139 196 Medications Current Medications Ondansetron HCl (Zofran Inj) 4 mg Q6H PRN IV NAUSEA AND/OR VOMITING; Start at 20:30 Morphine Sulfate (morphine) 2 mg Q4H PRN IV PAIN LEVEL 7-10 Last administered on 11/06/16at 01:34; Admin Dose 2 MG; Start 11/04/16 at 20:30 Famotidine (Pepcid Iv) 20 mg DAILY IV Last administered on 11/10/16 08:54; Admin Dose 20 MG; Start 11/04/16 at 21:00 Enoxaparin Sodium (Lovenox) 30 mg DAILY SC Last administered on 11/10/16 08:58 ; Admin Dose 30 MG; Start 11/05/16 at 09:00 Diagnostic Test (Pha) (Accucheck) 1 ea 02 XX Last administered on 11/06/16at 02 :33; Admin Dose 1 EA; Start 11/06/16 at 02:00 Miscellaneous Information 1 ea NOTE XX ; Start 11/05/16 at 09:30 Glucose (Glutose) 15 gm Q15M PRN PO DECREASED GLUCOSE; Start 11/05/16 at 09:30 Glucose (Glutose) 22.5 gm Q15M PRN PO DECREASED GLUCOSE; Start 11/05/16 at 09: 30 Dextrose (D50w Syringe) 25 ml Q15M PRN IV DECREASED GLUCOSE; Start 11/05/16 at 09:30 Dextrose (D50w Syringe) 50 ml Q15M PRN IV DECREASED GLUCOSE; Start 11/05/16 at 09:30 Glucagon (Glucagen) 1 mg Q15M PRN IM DECREASED GLUCOSE; Start 11/05/16 at 09: 30 Glucose (Glutose) 15 gm Q15M PRN BUCCAL DECREASED GLUCOSE; Start 11/05/16 at 09:30 Acetaminophen (Tylenol Tab) 650 mg Q4H PRN PO PAIN AND OR ELEVATED TEMP Last administered on 11/08/16 19:33; Admin Dose 650 MG; Start 11/05/16 at 14:30 Amlodipine Besylate (Norvasc) 5 mg QHS PO Last administered on 11/09/16 20:32; Admin Dose 5 MG; Start 11/05/16 at 21:30 Losartan Potassium (Cozaar) 100 mg DAILY PO Last administered on 11/10/16 08:55 ; Admin Dose 100 MG; Start 11/06/16 at 09:00 Meloxicam (Mobic) 15 mg DAILY PO Last administered on 11/10/16 08:54; Admin Dose 15 MG; Start 11/06/16 at 09:00 Guaifenesin (Robitussin Liquid Cup) 100 mg Q6H PRN PO COUGH Last administered on 11/10/16 01:06; Admin Dose 100 MG; Start 11/07/16 at 00:15 Zolpidem Tartrate 5 mg 5 mg HS PRN PO INSOMNIA Last administered on 11/09/16 20 :31; Admin Dose 5 MG; Start 11/07/16 at 19:30 Levofloxacin/ Dextrose (Levaquin 500mg/ D5W 100 ml (Pmx)) 100 ml @ 100 mls/hr Q24H IVPB Last administered on 11/10/16 13:28; Admin Dose 100 MLS/HR; Start 11/09/16 at 13:30 Assessment/Plan Chief Complaint/Hosp Course 1. Fall, possible aspiration pna 2. questionable syncopal episode. The patient will require: 1. Incentive spirometry. 2. Encourage out of bed. 3. Bronchodilators. 4. PT eval Problems: DEE DEE STEEL MD, [facility] Nov 10, 2016 15:43
[2016-11-10] MEDS: AMLODIPINE 5 MG TAB PO SCH (20:33)
[2016-11-10] MEDS: ZOLPIDEM 5 MG TAB PO PRN (21:46)
[2016-11-11] MEDS: ALBUTEROL 0.5% (NEB) 2.5 MG/0.5 ML AMP HHN SCH ×3 (01:27→10:01)
[2016-11-11] MEDS: ACCUCHECK XX SCH (01:29)
[2016-11-11 07:45] VITALS: BP 130/63; RESP 14
[2016-11-11] MEDS: INSULIN ASPART [NOVOLOG] 3 ML PEN SC SCH ×2 (08:15→12:12)
[2016-11-11] MEDS: LOSARTAN 50 MG TAB PO SCH (09:02)
[2016-11-11] MEDS: MELOXICAM 15 MG TAB PO SCH (09:02)
[2016-11-11] MEDS: FAMOTIDINE 20 MG INJ IV SCH (09:02)
[2016-11-11] MEDS: ENOXAPARIN 30 MG/0.3 ML SYG SC SCH (09:32)
--- NOTE | 2016-11-11 12:00 | DS ---
Date/Time of Note Date/Time of Note DATE: 11/11/16 TIME: 11:58 Discharge Summary Admission/Discharge Info Admit Date/Time Nov 04, 2016 at 07:24 Discharge Date/Time 11/11/16 Final Diagnosis 1) syncope 2) hypoxia Patient Condition: Fair Consults pulmonary Hx of Present Illness Patient with hypertension, hypercholesterolemia and diabetes mellitus comes in after having a sycopal episode. She has had this in the past, was hospitalized for the same in 2013. Patient has residual pain from where she fell but is otherwise back to normal. Hospital Course Patient comes in after a syncopal episode. She was monitored on telemetry but then developed problem with hypoxemia. Patient was treated with bronchodilators and incentive spirometry and the problem resolved. So the patient was then discharged home. 1. Fall, possible aspiration pna 2. questionable syncopal episode. The patient will require: 1. Incentive spirometry. 2. Encourage out of bed. 3. Bronchodilators. 4. PT eval Home Meds Reported Medications Alendronate Sodium* (Fosamax*) 70 Mg Tablet, 70 MG PO Q7D, #4 TAB 11/04/16 Pioglitazone Hcl* (Actos*) 30 Mg Tablet, 30 MG PO DAILY, #30 TAB 11/04/16 Amlodipine Besylate* (Norvasc*) 5 Mg Tablet, 5 MG PO DAILY, TAB 11/04/16 Ranitidine Hcl* (Ranitidine Hcl*) 150 Mg Tablet, 150 MG PO Q12, TAB 08/14/14 Omeprazole* (Omeprazole*) 20 Mg Capsule.dr, 20 MG PO DAILY, CAP 08/14/14 Losartan Potassium* (Losartan Potassium*) 100 Mg Tablet, 100 MG PO DAILY, TAB 08/14/14 Meloxicam* (Mobic*) 15 Mg Tablet, 15 MG PO DAILY, TAB 08/14/14 Glipizide* (Glipizide*) 5 Mg Tablet, 5 MG PO AM, TAB 08/14/14 Gabapentin* (Gabapentin*) 300 Mg Capsule, 300 MG PO BID, CAP 08/14/14 Discontinued Reported Medications Aspirin* (Aspirin* EC) 81 Mg Tablet.dr, 81 MG PO DAILY, TAB 08/14/14 Discontinued Scripts Amlodipine Besylate* (Norvasc*) 10 Mg Tab, 10 MG PO DAILY, #30 Prov:GARRY FULLER MD 08/17/14 Pending Labs Laboratory Tests Test 11/10/16 17:11 11/10/16 20:31 11/11/16 08:02 Bedside Glucose 107mg/dL (70-220) 151mg/dL (70-220) 122mg/dL (70-220) DEBRA DUNNE Nov 11, 2016 12:00
--- NOTE | 2016-11-11 15:44 | CONS ---
Date/Time of Note Date/Time of Note DATE: 11/11/16 TIME: 15:44 Consult Date/Type/Reason Admit Date/Time Nov 04, 2016 at 07:24 Type of Consultation: Pulm Subjective Patient stable this morning no new events breathing has improved Objective Vital Signs Date Time Temp Pulse Resp B/P Pulse Ox O2 Delivery O2 Flow Rate FiO2 11/11/16 14:00 2.0 28 11/11/16 10:02 80 20 97 Nasal Cannula 11/11/16 07:45 98.4 130/63 Intake and Output 11/10/16 11/10/16 11/11/16 15:00 23:00 07:00 Intake Total 600 ml 500 ml 600 ml Balance 600 ml 500 ml 600 ml PHYSICAL EXAMINATION: GENERAL: Well-nourished, well-developed lady, comfortable at rest, VITAL SIGNS: NECK: Supple. No JVD or lymphadenopathy. CARDIAC: S1, S2, no added sounds or murmurs. CHEST: Diminished air entry bilaterally. No rales or wheezes. ABDOMEN: Soft, nontender. No guarding or rebound. EXTREMITIES: No cyanosis, clubbing, edema. NEUROLOGIC: Grossly intact. No focal deficits. Results/Medications Results 24 hrs Laboratory Tests Test 11/10/16 17:11 11/10/16 20:31 11/11/16 08:02 11/11/16 12:09 Bedside Glucose 107 151 122 110 Assessment/Plan Chief Complaint/Hosp Course 1. Fall, possible aspiration pna 2. questionable syncopal episode. The patient will require: 1. Incentive spirometry. 2. Encourage out of bed. 3. Bronchodilators. Agree with discharge planning Problems: DEE DEE STEEL MD, [facility] Nov 11, 2016 15:44
[2016-11-12] MEDS ORDERED: LEVOFLOXACIN 500 MG TAB PO SCH (06:00)
[2016-11-12] MEDS ORDERED: FAMOTIDINE 20 MG TAB PO SCH (09:00)
== END 2016-11-11 13:55 | disposition home or self-care (01) | DRG 312 ==
LOC: E/R 04:58 → TEL 07:24 → MS2 11-10 14:20
PROVIDERS: ADMIT Internal Medicine; ATTEND Internal Medicine
DX: R55 Syncope and collapse (principal); J69.0 Pneumonitis due to inhalation of food and vomit; E11.9 Type 2 diabetes mellitus without complications; I10 Essential (primary) hypertension; E78.00 Pure hypercholesterolemia, unspecified; R07.9 Chest pain, unspecified; R09.02 Hypoxemia; R07.81 Pleurodynia; J20.9 Acute bronchitis, unspecified
CPT/HCPCS: 36415; 71010; 71100; 72100; 80048; 80053; 82962; 84484; 85025; 93005; 93306; 93880; 94640; 94664; 96374; 96375; 96376; J1650; J1815; J1940; J1956; J2060; J2270; J2405

== ENCOUNTER 2019-03-15 18:22 | Emergency (ER) | payer OTHER, MEDICAID ==
[~2019-03-15] VITALS: Ht 157.5 cm; Wt 60.5 kg
[~2019-03-15 18:22] MED LIST changes: +ALEN70TA5 PO; -AMLO-218 PO; +AMLO5TAB4 PO; -ASPI-664 PO; +LOSA100T15 PO; -LOSA100T7 PO; -MELO-110 PO; +MELO15TA30 PO; +PIOG30TA12 PO
[2019-03-15 18:24] VITALS: PULSE 90; RESP 20; Ht 157.5 cm; Wt 60.5 kg
[2019-03-15 18:40] VITALS: BP 159/96
[2019-03-15] MEDS ORDERED: ONDANSETRON (ODT) 4 MG TAB ODT STA (19:19)
[2019-03-15] MEDS ORDERED: KETOROLAC 15 MG INJ IM STA (19:19)
--- NOTE | 2019-03-15 19:19 | ERD ---
ER Documentation Chief Complaint Chief Complaint L foot pain since september hx of sciatica HPI 79-year-old female, with history of diabetes, hypertension and chronic back pain, presents the emergency department, complaining of worsening of left lower extremity pain, sharp, constant, 7/10. The patient denies any recent trauma, no distal weakness, numbness or tingling. No reports of fever, chills or rashes. ROS All systems reviewed and are negative except as per history of present illness. Medications Home Meds Reported Medications Alendronate Sodium* (Fosamax*) 70 Mg Tablet, 70 MG PO Q7D, #4 TAB 11/04/16 Pioglitazone Hcl* (Actos*) 30 Mg Tablet, 30 MG PO DAILY, #30 TAB 11/04/16 Amlodipine Besylate* (Norvasc*) 5 Mg Tablet, 5 MG PO DAILY, TAB 11/04/16 Ranitidine Hcl* (Ranitidine Hcl*) 150 Mg Tablet, 150 MG PO Q12, TAB 08/14/14 Omeprazole* (Omeprazole*) 20 Mg Capsule.dr, 20 MG PO DAILY, CAP 08/14/14 Losartan Potassium* (Losartan Potassium*) 100 Mg Tablet, 100 MG PO DAILY, TAB 08/14/14 Meloxicam* (Mobic*) 15 Mg Tablet, 15 MG PO DAILY, TAB 08/14/14 Glipizide* (Glipizide*) 5 Mg Tablet, 5 MG PO AM, TAB 08/14/14 Gabapentin* (Gabapentin*) 300 Mg Capsule, 300 MG PO BID, CAP 08/14/14 Allergies Allergies: Coded Allergies: No Known Allergy (Unverified , 11/04/16) PMhx/Soc History of Surgery: Yes (HYSTERECTOMY) Anesthesia Reaction: No Hx Neurological Disorder: No Hx Respiratory Disorders: No Hx Cardiac Disorders: Yes (hypertension) Hx Psychiatric Problems: No Hx Miscellaneous Medical Probl: Yes (chronic back problem) Hx Alcohol Use: No Hx Substance Use: No Hx Tobacco Use: No Smoking Status: Never smoker FmHx Family History: diabetes; No coronary disease Physical Exam Vitals Vital Signs Date Temp Pulse Resp B/P (MAP) Pulse Ox O2 O2 Flow FiO2 Time Delivery Rate 03/15/19 159/96 18:40 (117) 03/15/19 98.5 90 20 215/91 97 18:24 (132) Physical Exam Const: No acute distress Head: Atraumatic Eyes: Normal Conjunctiva ENT: Normal External Ears, Nose and Mouth. Neck: Full range of motion. No meningismus. Resp: Clear to auscultation bilaterally Cardio: Regular rate and rhythm, no murmurs Abd: Soft, non tender, non distended. Normal bowel sounds Skin: No petechiae or rashes Back: No midline or flank tenderness Ext: No cyanosis, or edema Neur: Awake and alert Psych: Normal Mood and Affect Results 24 hrs Current Medications Medications Dose Sig/Mary Anne Start Time Status Last (Trade) Ordered Route PRN Stop Time Admin Dose Reason Admin Ketorolac 15 mg ONCE STAT 03/15/19 DC 03/15/19 Tromethamine IM 19:19 03/15/19 19:27 (Toradol) 19:21 Morphine 5 mg ONCE ONCE 03/15/19 DC 03/15/19 Sulfate PO 19:30 03/15/19 19:26 (morphine) 19:31 Ondansetron 4 mg ONCE STAT 03/15/19 DC 03/15/19 HCl (Zofran ODT 19:19 03/15/19 19:27 Odt) 19:21 Procedures/MDM Acute on chronic right lower extremity pain: no red flags. Differential diagnosis include but not limited to: Musculoskeletal injury, arthritis, fracture, DVT; low suspicion for acute limb ischemia, septic arthritis, necrotizing fasciitis, compartment syndrome. Neurovascular exam grossly intact. no clinical findings suggestive of acute infectious process, no acute deformity, no edema, no rashes. Physical examination and clinical presentation consistent most likely with acute on chronic back pain with sciatica. During the ED course the patient received treatment with Toradol IM presenting overall improvement of the symptoms. Results and clinical impression discussed with the patient who agrees with management. The patient is stable to be treated outpatient and will be disc harged home with recommendations for ice, rest and pain medication 3 times daily for 5 days and close monitoring. The patient was instructed to follow up with the primary care provider in the next 48h. If symptoms persist, worsen or new symptoms develop, then patient should return to the ED immediately. Instructions explained and given to patient with acknowledgment and demonstrated understanding. Disclaimer: Inadvertent spelling and grammatical errors are likely due to EHR/dictation software use and do not reflect on the overall quality of patient care. Also, please note that the electronic time recorded on this note does not necessarily reflect the actual time of the patient encounter. Departure Diagnosis: Primary Impression: Acute exacerbation of chronic low back pain Additional Impression: Left-sided low back pain with sciatica Condition: Stable Additional Instructions: Muchas josh por [facility] para harmon servicio. Esperamos que en harmon visita a la cynthia de emergencia harmon problema medico haya sido solucionado y que se sienta mucho mejor. Para estar seguros que harmon mejoria sigue en proceso, le pedimos el favor de hacer jose elias de seguimiento medico con harmon doctor primario en los proximos 2-4 torres. Lleve con usted estos documentos y las medicinas recetadas. Si kathie sintomas empeoran, NO SE ESPERE, por favor regrese a cynthia de emergencia INMEDIATAMENTE. En phoebe que usted no tenga un mdico de atencin primaria: Llame al mdico o clnica comunitaria de referencia que aparece abajo khalif las horas de consultorio para hacer jose elias para que le vean. CLINICAS: [facility] [phone] [facility] [phone] [facility] [address] [facility] [phone] [facility] [phone] [place] [id number] [phone] [facility]. [phone] GRIFFIN HUMPHREYS MD March 15, 2019 19:19
[2019-03-15] MEDS ORDERED: morphine LIQ (10 MG/5 ML) CUP PO ONE (19:30)
[2019-03-15] MEDS ORDERED: HYDR-4011 PO (19:38)
== END 2019-03-15 20:08 | disposition home or self-care (01) ==
LOC: FTE 18:22
DX: M54.42 Lumbago with sciatica, left side (principal)
CPT/HCPCS: 96372; 99284; J1885